=== PATIENT | male | born 1960 | race Two or more races ===

== ENCOUNTER 2018-03-22 13:24 | Emergency (ER) | payer OTHER ==
[~2018-03-22] VITALS: Ht 177.8 cm; Wt 77.1 kg
[2018-03-22 13:34] VITALS: BP 148/97
--- NOTE | 2018-03-22 13:44 | Emergency Room Report ---
History of Present Illness General Chief Complaint: Seizure Source: Patient, EMS (Kevan Quinonez DO) Present Illness HPI Patient just by paramedics for report of seizure activity This was witnessed at the bus stop Patient is somewhat of a poor historian Does report that he has a history of seizures reports that his last seizure was several months ago However not able to provide the name of the medications at he takes Denies any chest pain or shortness of breath denies any recent fevers Denies any vomiting or diarrhea (Kevan Quinonez DO) Allergies: Coded Allergies: No Known Allergies (Unverified , 03/22/18) Patient History Past Medical History: see triage record Pertinent Family History: none Reviewed Nursing Documentation: PMH: Agreed; PSxH: Agreed (Kevan Quinonez DO) Nursing Documentation-PMH Past Medical History: No History, Except For Hx Seizures: Yes (Kevan Quinonez DO) Review of Systems All Other Systems: negative except mentioned in HPI (Kevan Quinonez DO) Physical Exam Vital Signs Date Time Temp Pulse Resp B/P (MAP) Pulse Ox O2 Delivery O2 Flow Rate FiO2 03/22/18 13:24 98.8 93 16 148/97 99 Room Air 98.8 Sp02 EP Interpretation: reviewed, normal General Appearance: well appearing, no apparent distress Head: normocephalic, atraumatic Eyes: bilateral eye PERRL, bilateral eye EOMI ENT: hearing grossly normal, normal pharynx Neck: full range of motion, supple Respiratory: lungs clear, normal breath sounds Cardiovascular #1: regular rate, rhythm Gastrointestinal: non tender Musculoskeletal: normal inspection Neurologic: alert, oriented x3, responsive Skin: other - Mild disheveled appearance no acute disease Lymphatic: no adenopathy (Kevan Quinonez DO) Medical Decision Making Diagnostic Impression: Primary Impression: Seizure Additional Impression: Non compliance with medical treatment ER Course Patient is awake alert, has previous history of seizure disorder At this time is neurologically intact and CT imaging was not initially obtained pending further chemistry evaluation (Kevan Quinonez DO) ER Course see above note by Dr. Quinonez. Patient improved with observation. Labs below. Given Keppra. Ambulatory at time of discharge. Non-focal neurologic exam. Patient stable for outpatient observation and treatment. Laboratory Tests Test 03/22/18 14:40 White Blood Count 6.4 K/UL (4.8-10.8) Red Blood Count 3.29 M/UL (4.70-6.10) L Hemoglobin 9.6 G/DL (14.2-18.0) L Hematocrit 31.0 % (42.0-52.0) L Mean Corpuscular Volume 94 FL (80-99) Mean Corpuscular Hemoglobin 29.2 PG (27.0-31.0) Mean Corpuscular Hemoglobin Concent 31.0 G/DL (32.0-36.0) L Red Cell Distribution Width 16.2 % (11.6-14.8) H Platelet Count 116 K/UL (150-450) L Mean Platelet Volume 7.2 FL (6.5-10.1) Neutrophils (%) (Auto) 64.3 % (45.0-75.0) Lymphocytes (%) (Auto) 21.9 % (20.0-45.0) Monocytes (%) (Auto) 11.8 % (1.0-10.0) H Eosinophils (%) (Auto) 0.1 % (0.0-3.0) Basophils (%) (Auto) 2.0 % (0.0-2.0) Sodium Level 134 MMOL/L (136-145) L Potassium Level 4.5 MMOL/L (3.5-5.1) Chloride Level 101 MMOL/L (98-107) Carbon Dioxide Level 26 MMOL/L (21-32) Anion Gap 7 mmol/L (5-15) Blood Urea Nitrogen 11 mg/dL (7-18) Creatinine 1.1 MG/DL (0.55-1.30) Estimate Glomerular Filtration Rate > 60 mL/min (>60) Glucose Level 96 MG/DL (74-106) Calcium Level 8.6 MG/DL (8.5-10.1) (Cordell Long MD) Rhythm Strip Diag. Results EP Interpretation: yes Rhythm: NSR, no PVC's, no ectopy (Cordell Long MD) Last Vital Signs Date Time Temp Pulse Resp B/P (MAP) Pulse Ox O2 Delivery O2 Flow Rate FiO2 03/22/18 13:34 98.8 16 148/97 99 Room Air 98.8 03/22/18 13:34 93 (Kevan Quinonez DO) Last Vital Signs Date Time Temp Pulse Resp B/P (MAP) Pulse Ox O2 Delivery O2 Flow Rate FiO2 03/22/18 15:50 98.3 80 18 147/90 100 Room Air 98.3 Status: improved (Cordell Long MD) Disposition: HOME, SELF-CARE Condition: Improved Signed Out To: on coming physician (Kevan Quinonez DO) Scripts Levetiracetam (Keppra) 250 Mg Tablet 500 MG ORAL EVERY 12 HOURS, #50 TAB 0 Refills Prov: Cordell Long MD 03/22/18 Kevan Quinonez DO Mar 22, 2018 13:44 Cordell Long MD Mar 22, 2018 15:37
[2018-03-22 15:04] LABS: EOSINOPHILS % (AUTO) 0.1 % (0.0-3.0); HEMOGLOBIN 9.6 G/DL (14.2-18.0); LYMPHOCYTES % (AUTO) 21.9 % (20.0-45.0); MEAN CORPUSCULAR VOLUME 94 FL (80-99); MONOCYTES % (AUTO) 11.8 % (1.0-10.0); NEUTROPHILS % (AUTO) 64.3 % (45.0-75.0); PLATELET COUNT 116 K/UL (150-450); RED BLOOD COUNT 3.29 M/UL (4.70-6.10); RED CELL DISTRIBUTION WIDTH 16.2 % (11.6-14.8); WHITE BLOOD COUNT 6.4 K/UL (4.8-10.8)
[2018-03-22 15:07] LABS: ANION GAP 7 mmol/L (5-15); BLOOD UREA NITROGEN 11 mg/dL (7-18); CALCIUM 8.6 MG/DL (8.5-10.1); CARBON DIOXIDE 26 MMOL/L (21-32); CHLORIDE 101 MMOL/L (98-107); CREATININE 1.1 MG/DL (0.55-1.30); POTASSIUM 4.5 MMOL/L (3.5-5.1); SODIUM 134 MMOL/L (136-145)
[2018-03-22 15:40] VITALS: BP 147/90
[2018-03-22] MEDS ORDERED: KEPPRA500 MG ORAL (15:40)
[2018-03-22 15:50] VITALS: BP 147/90
== END 2018-03-22 16:00 | disposition home or self-care (01) ==
LOC: EDBD 13:24 → EMR 13:58
DX: R56.9 Unspecified convulsions (principal)
CPT/HCPCS: 36415; 80048; 80299; 85025; 99284

== ENCOUNTER 2018-04-26 11:09 | Inpatient (IN) | payer OTHER ==
[~2018-04-26] VITALS: Ht 172.7 cm; Wt 68.4 kg
[~2018-04-26 11:09] MED LIST: KEPPRA500 MG ORAL
[2018-04-26] MEDS ORDERED: levETIRAcetam 500 MG in D5W 110 ML IV ONE (11:15)
[2018-04-26] MEDS ORDERED: LORazepam Inj 2mg/ml 1ml IV ONE (11:15)
[2018-04-26 11:16] VITALS: BP 140/86
[2018-04-26] MEDS ORDERED: UNOBMED (11:16)
[2018-04-26 11:52] LABS: BASOPHILS % (AUTO) 3.7 % (0.0-2.0); EOSINOPHILS % (AUTO) 0.2 % (0.0-3.0); HEMATOCRIT 34.3 % (42.0-52.0); HEMOGLOBIN 10.6 G/DL (14.2-18.0); LYMPHOCYTES % (AUTO) 20.2 % (20.0-45.0); MEAN CORPUSCULAR VOLUME 93 FL (80-99); MONOCYTES % (AUTO) 13.8 % (1.0-10.0); NEUTROPHILS % (AUTO) 62.2 % (45.0-75.0); PLATELET COUNT 117 K/UL (150-450); RED BLOOD COUNT 3.68 M/UL (4.70-6.10); RED CELL DISTRIBUTION WIDTH 14.3 % (11.6-14.8); WHITE BLOOD COUNT 6.2 K/UL (4.8-10.8)
[2018-04-26 12:21] LABS: ANION GAP 10 mmol/L (5-15); BLOOD UREA NITROGEN 16 mg/dL (7-18); CALCIUM 8.8 MG/DL (8.5-10.1); CARBON DIOXIDE 25 MMOL/L (21-32); CHLORIDE 99 MMOL/L (98-107); CREATININE 1.1 MG/DL (0.55-1.30); POTASSIUM 5.1 MMOL/L (3.5-5.1); SODIUM 134 MMOL/L (136-145)
[2018-04-26 12:25] LABS: ALANINE AMINOTRANSFERASE 71 U/L (12-78); ALBUMIN 2.7 G/DL (3.4-5.0); ALBUMIN/GLOBULIN RATIO 0.4 (1.0-2.7); ALKALINE PHOSPHATASE 98 U/L (46-116); ASPARTATE AMINO TRANSFERASE 134 U/L (15-37); BILIRUBIN,TOTAL 0.9 MG/DL (0.2-1.0); CREATINE KINASE 161 U/L (26-308)
--- NOTE | 2018-04-26 12:55 | Emergency Room Report ---
History of Present Illness General Chief Complaint: Seizure Source: Patient, Medical Record Present Illness HPI Patient presents after having a witnessed seizure on a bus. He did not injure his head. EMS transported here. He has a seizure disorder and has questionable compliance. He does drink alcohol. He denies any pain at this time. Patient mumbling answers and sometimes does not answer questions. Seen in February for seizures and given Keppra. Unknown if he filled. Allergies: Coded Allergies: No Known Allergies (Unverified , 03/22/18) Patient History Limited by: medical condition Past Medical History: see triage record, old chart reviewed Social History: Reports: alcohol use Reviewed Nursing Documentation: PMH: Agreed; PSxH: Agreed Nursing Documentation-PMH Past Medical History: No History, Except For Hx Seizures: Yes Review of Systems All Other Systems: limited Physical Exam Vital Signs Date Time Temp Pulse Resp B/P (MAP) Pulse Ox O2 Delivery O2 Flow Rate FiO2 04/26/18 11:07 99.1 103 18 130/86 99 Room Air 04/26/18 11:16 99 General Appearance: other - dishevelled, Postictal Eyes: bilateral eye PERRL, bilateral eye EOMI, bilateral eye Scleral Injection ENT: moist mucus membranes - no lingual trauma, but poor dentition Neck: full range of motion, no bony tend Respiratory: chest non-tender, lungs clear, normal breath sounds Cardiovascular #1: regular rate, rhythm Gastrointestinal: normal bowel sounds, non tender, soft Genitourinary: no CVA tenderness Musculoskeletal: back normal, normal range of motion Neurologic: responsive, legal transcriber III-XII nml as tested, motor strength/tone normal, DTRs symmetric, sensory intact, oriented - X2 Psychiatric: depressed affect Skin: warm/dry, other - dishevelled, no hematomata or abrasions Medical Decision Making Diagnostic Impression: Primary Impression: NSTEMI (non-ST elevated myocardial infarction) Additional Impressions: Uncontrolled seizures Qualified Codes: R56.9 - Unspecified convulsions Left upper lobe pulmonary nodule Alcohol abuse ER Course Patient with known seizures presents post seizure. DDx; breakthrough seizure, non-compliance, alcohol withdrawal, electrolyte abnormalities amongst others. Evaluation with EKG, CXR and labs. IV hydration, ativan and keppra given. No indication for CT head as non-focal neurologic exam and prior h/o seizures. EKG without injury. CXR - no infiltrate. Labs with normal CBC, CMP. BAL + 12 Troponin elevated. EKG reviewed again = NSR, no injury. Aspirin given. Due to NSTEMI and seizure, CT head ordered. CT no bleed or mass. No more seizure activity. Slightly more conversant. Denies chest pain. Admit SDU Dr. Butterfield. Laboratory Tests Test 04/26/18 11:00 04/26/18 13:25 White Blood Count 6.2 K/UL (4.8-10.8) Red Blood Count 3.68 M/UL (4.70-6.10) L Hemoglobin 10.6 G/DL (14.2-18.0) L Hematocrit 34.3 % (42.0-52.0) L Mean Corpuscular Volume 93 FL (80-99) Mean Corpuscular Hemoglobin 28.7 PG (27.0-31.0) Mean Corpuscular Hemoglobin Concent 30.8 G/DL (32.0-36.0) L Red Cell Distribution Width 14.3 % (11.6-14.8) Platelet Count 117 K/UL (150-450) L Mean Platelet Volume 7.5 FL (6.5-10.1) Neutrophils (%) (Auto) 62.2 % (45.0-75.0) Lymphocytes (%) (Auto) 20.2 % (20.0-45.0) Monocytes (%) (Auto) 13.8 % (1.0-10.0) H Eosinophils (%) (Auto) 0.2 % (0.0-3.0) Basophils (%) (Auto) 3.7 % (0.0-2.0) H Sodium Level 134 MMOL/L (136-145) L Potassium Level 5.1 MMOL/L (3.5-5.1) Chloride Level 99 MMOL/L (98-107) Carbon Dioxide Level 25 MMOL/L (21-32) Anion Gap 10 mmol/L (5-15) Blood Urea Nitrogen 16 mg/dL (7-18) Creatinine 1.1 MG/DL (0.55-1.30) Estimate Glomerular Filtration Rate > 60 mL/min (>60) Glucose Level 97 MG/DL (74-106) Calcium Level 8.8 MG/DL (8.5-10.1) Total Bilirubin 0.9 MG/DL (0.2-1.0) Aspartate Amino Transferase (AST) 134 U/L (15-37) H Alanine Aminotransferase (ALT) 71 U/L (12-78) Alkaline Phosphatase 98 U/L (46-116) Total Creatine Kinase 161 U/L (26-308) Troponin I 0.064 ng/mL (0.000-0.056) Total Protein 9.1 G/DL (6.4-8.2) H Albumin 2.7 G/DL (3.4-5.0) L Globulin 6.4 g/dL Albumin/Globulin Ratio 0.4 (1.0-2.7) L Salicylates Level < 0.2 ug/mL (2.8-20) L Acetaminophen Level < 2 MCG/ML (10-30) L Phenytoin (Dilantin) Level < 0.5 ug/mL (10-20) L Valproic Acid Level < 3 MCG/ML (50-100) L Phenobarbital Level < 1.0 ug/mL (15-40) L Serum Alcohol 12 mg/dL Urine Color Pale yellow Urine Appearance Clear Urine pH 7 (4.5-8.0) Urine Specific [place] 1.005 (1.005-1.035) Urine Protein Negative (NEGATIVE) Urine Glucose (UA) Negative (NEGATIVE) Urine Ketones Negative (NEGATIVE) Urine Blood Negative (NEGATIVE) Urine Nitrite Negative (NEGATIVE) Urine Bilirubin Negative (NEGATIVE) Urine Urobilinogen 1 MG/DL (0.0-1.0) H Urine Leukocyte Esterase Negative (NEGATIVE) Urine Opiates Screen Negative (NEGATIVE) Urine Barbiturates Screen Negative (NEGATIVE) Phencyclidine (PCP) Screen Negative (NEGATIVE) Urine Amphetamines Screen Negative (NEGATIVE) Urine Benzodiazepines Screen Negative (NEGATIVE) Urine Cocaine Screen Negative (NEGATIVE) Urine Marijuana (THC) Screen Negative (NEGATIVE) EKG Diagnostic Results Rate: normal Rhythm: NSR ST Segments: no acute changes Rhythm Strip Diag. Results EP Interpretation: yes Rhythm: NSR, no PVC's, no ectopy Chest X-Ray Diagnostic Results Chest X-Ray Diagnostic Results : Chest X-Ray Ordered: Yes Interpretation: other - SHAUN nodule Impression: Other Electronically Signed by: Electronically signed by oCrdell Long MD CT/MRI/US Diagnostic Results CT/MRI/US Diagnostic Results : Imaging Test Ordered: head Impression age related volume loss Last Vital Signs Date Time Temp Pulse Resp B/P (MAP) Pulse Ox O2 Delivery O2 Flow Rate FiO2 04/26/18 11:16 99.1 100 12 140/86 99 Room Air 04/26/18 11:16 99 Status: improved Disposition: ADMITTED INPATIENT Condition: Serious Referrals: [facility],REFERRING (PCP) Cordell Long MD Apr 26, 2018 12:55
[2018-04-26 13:40] LABS: APPEARANCE,URINE CLEAR; BILIRUBIN, URINE NEGATIVE (NEGATIVE); COLOR,URINE PALE YELLOW; GLUCOSE, URINE (UA) NEGATIVE (NEGATIVE); KETONES,URINE NEGATIVE (NEGATIVE); LEUKOCYTE ESTERASE ,URINE NEGATIVE (NEGATIVE); NITRITE,URINE NEGATIVE (NEGATIVE); PH,URINE 7 (4.5-8.0); PROTEIN,URINE NEGATIVE (NEGATIVE); UROBILINOGEN,URINE 1 MG/DL (0.0-1.0)
--- NOTE | 2018-04-26 14:11 | Diagnostic Imaging Report ---
Indications: Seizure Technique: Spiral acquisitions obtained through the brain. Angled axial and coronal 5 x 5 mm slices were reconstructed. Total dose length product 1974.29 mGycm. CTDI vol(s) 70.38,70.38,70.38,70.38 mGy. Dose reduction achieved using automated exposure control Comparison: None. Findings: No acute intracranial hemorrhage nor edema. No mass effect nor midline shift. There is mild prominence of the ventricles and extra axial CSF spaces. [place]-white differentiation is normal. There is minimal periventricular deep white matter low-attenuation, consistent with chronic microvascular ischemic change. The calvarium is intact. The mastoids are clear. The sinuses are clear. The orbits are unremarkable. Impression: Minimal age-related volume loss Negative for acute intracranial bleed or mass effect The CT scanner at [facility] is accredited by the [employer] and the scans are performed using protocols designed to limit radiation exposure to as low as reasonably achievable to attain images of sufficient resolution adequate for diagnostic evaluation.
[2018-04-26] MEDS ORDERED: Nitroglycerin Subl 0.4mg tab SL PRN (15:30)
[2018-04-26 16:00] VITALS: BP 140/87
[2018-04-26] MEDS: D5NS 1,000 ML IV SCH (16:05)
[2018-04-26] MEDS ORDERED: Enoxaparin 40mg Inj SUBQ SCH (16:30)
--- NOTE | 2018-04-26 16:48 | Diagnostic Imaging Report ---
Indication: Cough Technique: One view of the chest Comparison: none Findings: Questionable 2 x 1.3 cm irregular opacity is seen in the left upper lung, superimposed over the first rib, possibly but not definitely calcified. Inspiration is suboptimal, with crowding of bronchovascular markings. Atelectatic changes are seen in the left lung base. Lungs and pleural spaces are otherwise clear. The heart is upper limits normal in size. Impression: Questionable 2 x 1.3 cm irregular opacity in the left upper lung. This is fairly dense, could just represent asymmetric costochondral cartilage calcification or calcific scarring, but noncalcified mass not completely excludable. Consider chest CT for better characterization. This finding was discussed by phone with Dr. Long No definite acute process
--- NOTE | 2018-04-26 16:51 | Cardiac Electrophysiology PN ---
Subjective Subjective [id number] Objective Last 24 Hour Vital Signs Date Time Temp Pulse Resp B/P (MAP) Pulse Ox O2 Delivery O2 Flow Rate FiO2 04/26/18 16:00 101.7 66 20 140/87 (104) 100 04/26/18 15:12 98.5 91 12 130/94 100 Room Air 04/26/18 11:16 99.1 100 12 140/86 99 Room Air 04/26/18 11:16 100 12 Room Air 99 04/26/18 11:07 99.1 103 18 130/86 99 Room Air Laboratory Tests Test 04/26/18 11:00 04/26/18 13:25 White Blood Count 6.2 K/UL (4.8-10.8) Red Blood Count 3.68 M/UL (4.70-6.10) L Hemoglobin 10.6 G/DL (14.2-18.0) L Hematocrit 34.3 % (42.0-52.0) L Mean Corpuscular Volume 93 FL (80-99) Mean Corpuscular Hemoglobin 28.7 PG (27.0-31.0) Mean Corpuscular Hemoglobin Concent 30.8 G/DL (32.0-36.0) L Red Cell Distribution Width 14.3 % (11.6-14.8) Platelet Count 117 K/UL (150-450) L Mean Platelet Volume 7.5 FL (6.5-10.1) Neutrophils (%) (Auto) 62.2 % (45.0-75.0) Lymphocytes (%) (Auto) 20.2 % (20.0-45.0) Monocytes (%) (Auto) 13.8 % (1.0-10.0) H Eosinophils (%) (Auto) 0.2 % (0.0-3.0) Basophils (%) (Auto) 3.7 % (0.0-2.0) H Sodium Level 134 MMOL/L (136-145) L Potassium Level 5.1 MMOL/L (3.5-5.1) Chloride Level 99 MMOL/L (98-107) Carbon Dioxide Level 25 MMOL/L (21-32) Anion Gap 10 mmol/L (5-15) Blood Urea Nitrogen 16 mg/dL (7-18) Creatinine 1.1 MG/DL (0.55-1.30) Estimat Glomerular Filtration Rate > 60 mL/min (>60) Glucose Level 97 MG/DL (74-106) Calcium Level 8.8 MG/DL (8.5-10.1) Total Bilirubin 0.9 MG/DL (0.2-1.0) Aspartate Amino Transf (AST/SGOT) 134 U/L (15-37) H Alanine Aminotransferase (ALT/SGPT) 71 U/L (12-78) Alkaline Phosphatase 98 U/L (46-116) Total Creatine Kinase 161 U/L (26-308) Troponin I 0.064 ng/mL (0.000-0.056) Total Protein 9.1 G/DL (6.4-8.2) H Albumin 2.7 G/DL (3.4-5.0) L Globulin 6.4 g/dL Albumin/Globulin Ratio 0.4 (1.0-2.7) L Salicylates Level < 0.2 ug/mL (2.8-20) L Acetaminophen Level < 2 MCG/ML (10-30) L Phenytoin (Dilantin) Level < 0.5 ug/mL (10-20) L Valproic Acid (Depakene) Level < 3 MCG/ML (50-100) L Levetiracetam (Keppra) Level Pending Phenobarbital Level < 1.0 ug/mL (15-40) L Serum Alcohol 12 mg/dL Urine Color Pale yellow Urine Appearance Clear Urine pH 7 (4.5-8.0) Urine Specific [place] 1.005 (1.005-1.035) Urine Protein Negative (NEGATIVE) Urine Glucose (UA) Negative (NEGATIVE) Urine Ketones Negative (NEGATIVE) Urine Blood Negative (NEGATIVE) Urine Nitrite Negative (NEGATIVE) Urine Bilirubin Negative (NEGATIVE) Urine Urobilinogen 1 MG/DL (0.0-1.0) H Urine Leukocyte Esterase Negative (NEGATIVE) Urine Opiates Screen Negative (NEGATIVE) Urine Barbiturates Screen Negative (NEGATIVE) Phencyclidine (PCP) Screen Negative (NEGATIVE) Urine Amphetamines Screen Negative (NEGATIVE) Urine Benzodiazepines Screen Negative (NEGATIVE) Urine Cocaine Screen Negative (NEGATIVE) Urine Marijuana (THC) Screen Negative (NEGATIVE) Oni Cooper MD Apr 26, 2018 16:51
[2018-04-26] MEDS ORDERED: D5NS 1000ml IV ONE (16:52)
--- NOTE | 2018-04-26 19:15 | History and Physical Report ---
DATE OF ADMISSION: 04/26/2018 REASON FOR ADMISSION: 1. Status post witnessed generalized seizure. 2. Elevated troponins. HISTORY OF PRESENT ILLNESS: The patient is a 58-year-old gentleman who was brought into the emergency room for further evaluation and care after having a witnessed seizure on a bus. The patient had been in the emergency room for a previous seizure as well. The patient is currently postictal, but arousable. Very somnolent. When incidentally noted, he also had elevated troponin 0.064, potassium 5.1, sodium 134, and creatinine of 1.1. His toxicology screen was negative except for a serum alcohol level of 12. The patient is fatigued and tired. Denies any current chest pain, nausea, vomiting, or diarrhea. PAST MEDICAL HISTORY: Seizure disorder. ALLERGIES: No known drug allergies. FAMILY HISTORY: Noncontributory. REVIEW OF SYSTEMS: Cannot obtain as the patient is postictal. LABORATORY DATA: Laboratories dated 04/26/2018; sodium 134, potassium 5.1, creatinine 1.1, and calcium 8.8. Hemoglobin 10.6, hematocrit 34.3, white cell count 6.2, and platelet count 117,000. PHYSICAL EXAMINATION: GENERAL APPEARANCE: Blood pressure 134/94, pulse oximetry 100% on room air, respiratory rate 12, pulse 91, and temperature 98.5. GENERAL: The patient somnolent, arousable, and postictal. HEENT: Extraocular muscles intact. No lymphadenopathy noted. CARDIOVASCULAR: S1 and S2. No rubs or gallops. PULMONARY: Clear to auscultation bilaterally. No rales, rhonchi, or wheezes. ABDOMEN: Nondistended and nontender. EXTREMITIES: No edema noted. ASSESSMENT AND PLAN: 1. Seizure disorder, status post witnessed generalized seizure. At this time, Neurology has been consulted. Keppra level has been ordered and the patient placed on his 500 mg twice a day of Keppra. CT of the head negative. 2. Acute coronary syndrome. Elevated troponin. At this time, patient will be placed on aspirin. Could be secondary to recent seizure. Cardiology consult for evaluation and management. 3. Seizure disorder. Per Neurology, continue Keppra. 4. Deep vein thrombosis prophylaxis with SCDs. As platelets low, we will discontinue Lovenox. 5. The patient will be placed on NPO with IV fluids until postictal phase resolves. Duy Nagel MD DR: SHANI JOB#: [id number] CC:
[2018-04-26 20:00] VITALS: BP 132/82
--- NOTE | 2018-04-26 20:30 | Consultation ---
DATE OF CONSULTATION: 04/26/2018 CARDIOLOGY CONSULTATION CONSULTING PHYSICIAN: Oni Cooper M.D. REFERRING PHYSICIAN: Duy Nagel M.D. REASON FOR CONSULTATION: Elevated troponin. HISTORY OF PRESENT ILLNESS: The patient is a 58-year-old gentleman with history of seizure disorder, was brought to the emergency room after he had a seizure episode while he was on the bus. 911 was called and the patient was brought to the emergency room for further evaluation. The patient was found to have elevated troponin and a Cardiology consultation was obtained. His EKG, however, showed normal sinus rhythm with no acute ST-T wave abnormalities. His urine tox screen, however, was positive in the past for meth. PAST MEDICAL HISTORY: As mentioned above. FAMILY HISTORY: Noncontributory. SOCIAL HISTORY: Denies smoking or drinking alcohol. REVIEW OF SYSTEMS: Negative other than what was mentioned in the history of present illness. PHYSICAL EXAMINATION: VITAL SIGNS: Blood pressure 140/87, pulse 66, respirations 18, and temperature is 101.7. HEAD AND NECK: Showed no jugular venous distention. LUNGS: Clear. CARDIOVASCULAR: Shows regular S1 and S2 with no gallop or murmur. ABDOMEN: Soft. EXTREMITIES: No pitting edema. LABORATORY AND DIAGNOSTIC DATA: His labs show sodium 134, potassium 5.1, BUN of 16, creatinine 1.1, and glucose of 97. Troponin 0.064. Urine toxicology screen is negative. White count of 6.7, hemoglobin 10.6, hematocrit 34.3, and platelet 117,000. ASSESSMENT AND PLAN: 1. Elevated troponin. The patient does not have any chest pain. EKG is nonischemic. We will get an echocardiogram and repeat cardiac enzymes. This is unusual as the patient does not have renal failure either. 2. Uncontrolled seizures. Further evaluation by Neurology. The patient is already on Keppra. Thank you very much for allowing me to participate in the care of this patient. Please do not hesitate to contact me for any questions regarding my evaluation. Oni Cooper M.D. DR: ABIMBOLA JOB#: [id number] CC:
[2018-04-27] VITALS: BP 126/86
[2018-04-27 04:00] VITALS: BP 144/89
[2018-04-27] MEDS: D5NS 1,000 ML IV SCH ×3 (05:34→20:15)
[2018-04-27 08:00] VITALS: BP 134/90
--- NOTE | 2018-04-27 08:56 | Nephrology Progress Note ---
Assessment/Plan Assessment/Plan A/P 1) S/P Epilectic Seizure- keppra level pending - neuro consult - s/p Todds paralysis, awake and alert this am 2) ACS- elevated Trop I, per cardiology 3) DVT prophylaxsis with Lovenox Transfer to Tele Subjective Date patient seen: Apr 27, 2018 Time patient seen: 08:54 ROS Limited/Unobtainable: No Allergies: Coded Allergies: No Known Allergies (Unverified , 03/22/18) All Systems: reviewed and negative except above Subjective Patient more awake and alert this am Objective Last 24 Hour Vital Signs Date Time Temp Pulse Resp B/P (MAP) Pulse Ox O2 Delivery O2 Flow Rate FiO2 04/27/18 08:00 98.5 68 22 134/90 (105) 98 04/27/18 08:00 Room Air 04/27/18 04:00 97.5 72 19 144/89 (107) 100 04/27/18 04:00 Room Air 04/27/18 04:00 65 04/27/18 00:00 97.9 69 18 126/86 (99) 97 04/27/18 00:00 Room Air 04/26/18 20:00 97.5 60 18 132/82 (99) 100 04/26/18 20:00 61 04/26/18 20:00 Room Air 04/26/18 16:42 98.4 04/26/18 16:00 101.7 66 20 140/87 (104) 100 04/26/18 16:00 70 04/26/18 16:00 Room Air 04/26/18 15:14 Room Air 04/26/18 15:12 98.5 91 12 130/94 100 Room Air 04/26/18 11:16 99.1 100 12 140/86 99 Room Air 04/26/18 11:16 100 12 Room Air 99 04/26/18 11:07 99.1 103 18 130/86 99 Room Air Intake and Output 04/26/18 04/27/18 18:59 06:59 Intake Total 143.75 ml Output Total 250 ml 1725 ml Balance -106.25 ml -1725 ml Intake IV Total 143.75 ml Output Urine Total 250 ml 1725 ml # Voids 2 3 Laboratory Tests 04/26/18 11:00: White Blood Count 6.2, Red Blood Count 3.68L, Hemoglobin 10.6L, Hematocrit 34.3L , Mean Corpuscular Volume 93, Mean Corpuscular Hemoglobin 28.7, Mean Corpuscular Hemoglobin Concent 30.8L, Red Cell Distribution Width 14.3, Platelet Count 117L, Mean Platelet Volume 7.5, Neutrophils (%) (Auto) 62.2, Lymphocytes (%) (Auto) 20.2, Monocytes (%) (Auto) 13.8H, Eosinophils (%) (Auto) 0.2, Basophils (%) (Auto) 3.7H, Sodium Level 134L, Potassium Level 5.1, Chloride Level 99, Carbon Dioxide Level 25, Anion Gap 10, Blood Urea Nitrogen 16 , Creatinine 1.1, Estimat Glomerular Filtration Rate > 60, Glucose Level 97, Calcium Level 8.8, Total Bilirubin 0.9, Aspartate Amino Transf (AST/SGOT) 134H, Alanine Aminotransferase (ALT/SGPT) 71, Alkaline Phosphatase 98, Total Creatine Kinase 161, Troponin I 0.064H, Total Protein 9.1H, Albumin 2.7L, Globulin 6.4, Albumin/Globulin Ratio 0.4L, Salicylates Level < 0.2L, Acetaminophen Level < 2L , Phenytoin (Dilantin) Level < 0.5L, Valproic Acid (Depakene) Level < 3L, Levetiracetam (Keppra) Level [Pending], Phenobarbital Level < 1.0L, Serum Alcohol 12 04/26/18 13:25: Urine Color Pale yellow, Urine Appearance Clear, Urine pH 7, Urine Specific [place] 1.005, Urine Protein Negative, Urine Glucose (UA) Negative, Urine Ketones Negative, Urine Blood Negative, Urine Nitrite Negative, Urine Bilirubin Negative, Urine Urobilinogen 1H, Urine Leukocyte Esterase Negative, Urine Opiates Screen Negative, Urine Barbiturates Screen Negative, Phencyclidine (PCP ) Screen Negative, Urine Amphetamines Screen Negative, Urine Benzodiazepines Screen Negative, Urine Cocaine Screen Negative, Urine Marijuana (THC) Screen Negative 04/26/18 18:30: Troponin I 0.072H Height (Feet): 5 Height (Inches): 8.00 Weight (Pounds): 150 General Appearance: no apparent distress, alert EENT: normal ENT inspection Neck: normal alignment, supple Cardiovascular: normal rate, regular rhythm Respiratory/Chest: lungs clear, normal breath sounds Abdomen: non tender, soft Edema: no edema noted Arm (L), no edema noted Arm (R), no edema noted Leg (L), no edema noted Leg (R), no edema noted Pedal (L), no edema noted Pedal (R), no edema noted Generalized Duy Nagel MD Apr 27, 2018 08:56
[2018-04-27] MEDS ORDERED: Aspirin Baby 81mg ORAL SCH (09:00)
[2018-04-27 09:33] LABS: ANION GAP 9 mmol/L (5-15); BLOOD UREA NITROGEN 14 mg/dL (7-18); CALCIUM 8.4 MG/DL (8.5-10.1); CARBON DIOXIDE 23 MMOL/L (21-32); CHLORIDE 107 MMOL/L (98-107); CREATININE 1.1 MG/DL (0.55-1.30); POTASSIUM 4.1 MMOL/L (3.5-5.1); SODIUM 139 MMOL/L (136-145)
[2018-04-27 12:00] VITALS: BP 122/76
[2018-04-27 16:00] VITALS: BP 130/95
--- NOTE | 2018-04-27 16:13 | Cardiology Report ---
APPROVED REPORT EXAM: Two-dimensional and M-mode echocardiogram with Doppler and color Doppler. INDICATION CAD M-Mode DIMENSIONS IVSd0.7 (0.7-1.1cm)Left Atrium (MM)2.6 (1.6-4.0cm) LVDd4.5 (3.5-5.6cm)Aortic Root3.7 (2.0-3.7cm) PWd1.0 (0.7-1.1cm)Aortic Cusp Exc.1.9 (1.5-2.0cm) LVDs2.7 (2.5-4.0cm) PWs1.3 cm Technically difficult study due to pts resistance. Normal left ventricular chamber size, systolic function and wall motion to extent visualized. Left ventricular ejection fraction estimated to be 55-60 %. Mild left ventricular hypertrophy by 2-D. No evidence of pericardial effusion. Mild bi-atrial enlargement. Mild right ventricular enlargement. Focal aortic valve sclerosis with adequate cusp excursion. Thickened mitral valve leaflets with normal excursion. Mitral annulus and aortic root calcification. Normal pulmonic valve structure. Normal tricuspid valve structure. IVC view not obtained. A color flow and spectral Doppler study was performed and revealed: Trace aortic regurgitation. Mild mitral regurgitation. Mitral inflow indicates normal left ventricular diastolic function. Trace to mild tricuspid regurgitation. Tricuspid systolic velocities suggests peak right ventricular systolic pressure of 23 mmHg.
--- NOTE | 2018-04-27 17:46 | Cardiology Report ---
APPROVED REPORT EKG Measurement Heart [id number] Normal sinus rhythm Normal ECG
--- NOTE | 2018-04-27 18:38 | Cardiac Electrophysiology PN ---
Assessment/Plan Assessment/Plan 1. Elevated troponin. The patient does not have any chest pain. EKG is nonischemic. Echocardiogram EF 65%. 2. Uncontrolled seizures. Further evaluation by Neurology. Already on Keppra. Subjective Subjective Comfortable in NAD. No events Objective Last 24 Hour Vital Signs Date Time Temp Pulse Resp B/P (MAP) Pulse Ox O2 Delivery O2 Flow Rate FiO2 04/27/18 16:00 Room Air 04/27/18 16:00 98.6 64 21 130/95 (107) 98 04/27/18 16:00 66 04/27/18 12:00 57 04/27/18 12:00 Room Air 04/27/18 12:00 98.0 73 23 122/76 (91) 100 04/27/18 08:00 98.5 68 22 134/90 (105) 98 04/27/18 08:00 61 04/27/18 08:00 Room Air 04/27/18 04:00 97.5 72 19 144/89 (107) 100 04/27/18 04:00 Room Air 04/27/18 04:00 65 04/27/18 00:00 97.9 69 18 126/86 (99) 97 04/27/18 00:00 Room Air 04/26/18 20:00 97.5 60 18 132/82 (99) 100 04/26/18 20:00 61 04/26/18 20:00 Room Air Intake and Output 04/26/18 04/27/18 19:00 07:00 Intake Total 143.75 ml Output Total 250 ml 1725 ml Balance -106.25 ml -1725 ml IV Total 143.75 ml Output Urine Total 250 ml 1725 ml # Voids 2 3 Laboratory Tests Test 04/27/18 09:00 Sodium Level 139 MMOL/L (136-145) Potassium Level 4.1 MMOL/L (3.5-5.1) Chloride Level 107 MMOL/L (98-107) Carbon Dioxide Level 23 MMOL/L (21-32) Anion Gap 9 mmol/L (5-15) Blood Urea Nitrogen 14 mg/dL (7-18) Creatinine 1.1 MG/DL (0.55-1.30) Estimat Glomerular Filtration Rate > 60 mL/min (>60) Glucose Level 90 MG/DL (74-106) Calcium Level 8.4 MG/DL (8.5-10.1) L Troponin I 0.079 ng/mL (0.000-0.056) Microbiology Date/Time Source Procedure Growth Status 04/27/18 09:10 Rectum Received Objective HEAD AND NECK: No jugular venous distention. LUNGS: Clear. CARDIOVASCULAR: Regular S1 and S2 with no gallop or murmur. ABDOMEN: Soft. EXTREMITIES: No pitting edema. Oni Cooper MD Apr 27, 2018 18:38
[2018-04-27 20:00] VITALS: BP 128/89
[2018-04-27] MEDS ORDERED: Nitroglycerin Subl 0.4mg tab SL PRN (20:15)
[2018-04-28] VITALS: BP 139/96
[2018-04-28 04:00] VITALS: BP 133/91
[2018-04-28 08:00] VITALS: BP 116/76
[2018-04-28] MEDS: D5NS 1,000 ML IV SCH (08:28)
--- NOTE | 2018-04-28 08:36 | Nephrology Progress Note ---
Assessment/Plan Assessment/Plan A/P 1) S/P Epilectic Seizure- keppra. Stable 2) ACS- elevated Trop I, per cardiology 3) DVT prophylaxsis with Lovenox Transfer MedSurg and DC once placement arranged and cleared by cardiology Subjective Date patient seen: Apr 28, 2018 Time patient seen: 08:31 ROS Limited/Unobtainable: No Allergies: Coded Allergies: No Known Allergies (Unverified , 03/22/18) Subjective Patient awake and alert this am Objective Last 24 Hour Vital Signs Date Time Temp Pulse Resp B/P (MAP) Pulse Ox O2 Delivery O2 Flow Rate FiO2 04/28/18 04:00 Room Air 04/28/18 04:00 54 04/28/18 04:00 98.0 55 20 133/91 (105) 100 04/28/18 00:00 Room Air 04/28/18 00:00 98.3 67 20 139/96 (110) 98 04/27/18 20:00 97.9 71 20 128/89 (102) 98 04/27/18 20:00 Room Air 04/27/18 20:00 75 04/27/18 16:00 Room Air 04/27/18 16:00 98.6 64 21 130/95 (107) 98 04/27/18 16:00 66 04/27/18 12:00 57 04/27/18 12:00 Room Air 04/27/18 12:00 98.0 73 23 122/76 (91) 100 Intake and Output 04/27/18 04/28/18 18:59 06:59 Intake Total 1140 ml 75 ml Output Total 900 ml 1000 ml Balance 240 ml -925 ml Intake Oral 240 ml IV Total 900 ml 75 ml Output Urine Total 900 ml 1000 ml # Voids 2 Laboratory Tests 04/27/18 09:00: Sodium Level 139, Potassium Level 4.1, Chloride Level 107, Carbon Dioxide Level 23, Anion Gap 9, Blood Urea Nitrogen 14, Creatinine 1.1, Estimat Glomerular Filtration Rate > 60, Glucose Level 90, Calcium Level 8.4L, Troponin I 0.079H Height (Feet): 5 Height (Inches): 8.00 Weight (Pounds): 150 General Appearance: no apparent distress, alert EENT: normal ENT inspection Neck: normal alignment, supple Cardiovascular: normal rate, regular rhythm Respiratory/Chest: lungs clear, normal breath sounds Abdomen: non tender, soft Edema: no edema noted Arm (L), no edema noted Arm (R), no edema noted Leg (L), no edema noted Leg (R), no edema noted Pedal (L), no edema noted Pedal (R), no edema noted Generalized Duy Nagel MD Apr 28, 2018 08:36
[2018-04-28] MEDS ORDERED: Aspirin Baby 81mg ORAL SCH (09:00)
[2018-04-28 12:00] VITALS: BP 98/75
--- NOTE | 2018-04-28 15:02 | Cardiac Electrophysiology PN ---
Assessment/Plan Assessment/Plan 1. Elevated troponin. Levels low and flat. The patient does not have any chest pain. EKG is nonischemic. Echocardiogram EF 65%. 2. Uncontrolled seizures. Further evaluation by Neurology. Already on Keppra. Subjective Subjective Comfortable in NAD. No events. No CP. Sitting in chair with no seizures Objective Last 24 Hour Vital Signs Date Time Temp Pulse Resp B/P (MAP) Pulse Ox O2 Delivery O2 Flow Rate FiO2 04/28/18 12:00 97.3 74 21 98/75 (83) 99 74 04/28/18 11:46 73 04/28/18 08:00 Room Air 04/28/18 08:00 97.7 79 21 116/76 (89) 99 04/28/18 08:00 61 04/28/18 04:00 Room Air 04/28/18 04:00 54 04/28/18 04:00 98.0 55 20 133/91 (105) 100 04/28/18 00:00 Room Air 04/28/18 00:00 98.3 67 20 139/96 (110) 98 04/27/18 20:00 97.9 71 20 128/89 (102) 98 04/27/18 20:00 Room Air 04/27/18 20:00 75 04/27/18 16:00 Room Air 04/27/18 16:00 98.6 64 21 130/95 (107) 98 04/27/18 16:00 66 Intake and Output 04/27/18 04/28/18 18:59 06:59 Intake Total 1140 ml 75 ml Output Total 900 ml 1000 ml Balance 240 ml -925 ml Intake Oral 240 ml IV Total 900 ml 75 ml Output Urine Total 900 ml 1000 ml # Voids 2 Microbiology Date/Time Source Procedure Growth Status 04/27/18 09:10 Rectum - Preliminary Resulted Objective HEAD AND NECK: No jugular venous distention. LUNGS: Clear. CARDIOVASCULAR: Regular S1 and S2 with no gallop or murmur. ABDOMEN: Soft. EXTREMITIES: No pitting edema. Oni Cooper MD Apr 28, 2018 15:02
--- NOTE | 2018-04-28 15:10 | Discharge Instructions ---
Discharge Instructions Discharge Instructions Services at Discharge: day care Resume Normal Activity?: Yes Follow Up Orders Follow up with psy/neuro and PCP 1 week For Congestive Heart Failure Reminder Report to your physician any weight gain of 5 pounds or more in one week. Duy Nagel MD Apr 28, 2018 15:10
[2018-04-28 16:00] VITALS: BP 109/61
--- NOTE | 2018-04-29 11:33 | Discharge Summary ---
Discharge Summary Discharge Summary _ DATE OF ADMISSION: 04/26/2018 DATE OF DISCHARGE: 04/28/2018 CONSULTANTS: Dr. Oni Cooper BRIEF HOSPITAL COURSE: Patient is a 58-year-old male, who was brought to the emergency room for further evaluation and care after having a witnessed seizure in the bus. He was brought in by EMS. He has history of seizure disorder with questionable compliance with medications. He admits to drinking alcohol. He was seen on February for seizures. On evaluation at ED, patient was postictal. Blood work did not show any leukocytosis, hemoglobin and hematocrit were stable. Troponin was elevated to 0.064. EKG showed normal sinus rhythm with no acute injury. He was given aspirin. Head CT showed minimal age-related volume loss. Negative for acute intracranial bleed or mass effect. Urine toxicology was negative. He was admitted for evaluation of seizure disorder and acute coronary syndrome. He was initially placed on nothing by mouth, with IV fluids. He was given Keppra. He was placed on seizure precautions. He underwent cardiac evaluation. He was given Lovenox for DVT prophylaxis. EGG showed NSR with no acute St-T wave abnormalities. His urine tox screen, however, was positive in the past for meth. Echocardiogram done showed ejection fraction of 55-60%. Patient was more alert. He denied chest pain. Troponin levels were elevated, however, levels were low and flat. There were no further seizure episodes. He was stressed need for compliance with medication. He was cleared for discharge home. FINAL DIAGNOSES: Seizure disorder with acute exacerbation Acute coronary syndrome, elevated troponin I DVT prophylaxis DISPOSITION: Patient was discharged home. DISCHARGE MEDICATIONS: Refer to Discharge Medication List. DISCHARGE INSTRUCTIONS: Follow up with PCP in a week. I have been assigned to dictate discharge summary on this account, and I was not involved in the patient's management. Rosangela Fortune NP Apr 29, 2018 11:33
== END 2018-04-28 16:15 | disposition home or self-care (01) | DRG 53 ==
LOC: EDBD 11:09 → EMR 12:50 → 2W 12:57 → EDBEDREQ 13:25 → 2W 04-27 11:30 → 2E 04-27 20:10
DX: G40.909 Epilepsy, unspecified, not intractable, without status epilepticus (principal); I24.9 Acute ischemic heart disease, unspecified
CPT/HCPCS: 36415; 70450; 71045; 80048; 80053; 80164; 80184; 80185; 80299; 80307; 80329; 81003; 82550; 82962; 84484; 85025; 87081; 93005; 93306; 96361; 96365; 96372; 96375; 99285